=== PATIENT | male | born 1990 | race Caucasian/White ===

== ENCOUNTER 2021-05-07 15:14 | Emergency (ER) | payer SELFPAY ==
[~2021-05-07] VITALS: Ht 185.4 cm; Wt 79.4 kg
[2021-05-07 15:33] VITALS: BP 125/64
[2021-05-07] MEDS: LIDOCAINE 1% INJ 50 ML MDV IJ ONE (16:00)
--- NOTE | 2021-05-07 16:00 | NUR ---
The patient bib friend for "Accidentally cut myself with kitchen knife Right middle finger". Rates pain 2/10. Mod bleeding noted. Will continue to monitor the patient.
[2021-05-07] MEDS ORDERED: LIDOCAINE HCL/MPF 1% 30 ML VIAL IJ ONE (16:14)
[2021-05-07] MEDS ORDERED: CEPH500C2 PO (17:49)
[2021-05-07] MEDS ORDERED: IBUP-1957 PO (17:49)
[2021-05-07] MEDS ORDERED: HYDR-4209 PO (17:49)
[2021-05-07] MEDS ORDERED: CEPHALEXIN MONOHYDRATE 500 MG CAPSULE PO ONE (18:09)
[2021-05-07] MEDS: CEPHALEXIN MONOHYDRATE 500 MG CAPSULE PO ONE (18:12)
== END 2021-05-07 18:39 | disposition home or self-care (01) ==
LOC: ER 15:18
DX: S61.213A Laceration without foreign body of left middle finger without damage to nail, initial encounter (principal); Z79.899 Other long term (current) drug therapy; W26.0XXA Contact with knife, initial encounter; Y93.89 Activity, other specified; Y92.89 Other specified places as the place of occurrence of the external cause; Y99.8 Other external cause status
CPT/HCPCS: 12004; 99283; A6403 ×3; J3490